=== PATIENT | female | born 2000 | race Caucasian/White ===

== ENCOUNTER 2021-01-10 22:26 | Emergency (ER) | payer OTHER ==
[~2021-01-10] VITALS: Ht 167.6 cm; Wt 56.7 kg
--- NOTE | 2021-01-10 22:40 | NUR ---
PRESENTED TO THE ER FOR C/O CHEST DICOMFORT AND PALPITATIONS S/P RECEIVING THE SECOND DOSE OF PFIZER COVID VACCINE TWO DAYS AGO. +SOB. PT REPORTED SHE WAS CHECKED OUT IN AN URGENT CARE THE OTHER DAY AND WAS DISCHARGED HOME. AMBULATORY TO BED 9 ER , WAS PLACED ON A MONITOR. NOTED W. MILD TACHYCARDIA. AWARE. WILL CONT TO MONITOR
[2021-01-10 22:50] LABS: BASOPHILS % (AUTO) 0.9 % (0.0-2.0); EOSINOPHILS % (AUTO) 2.2 % (0.0-6.0); HEMATOCRIT 42 % (33-45); LYMPHOCYTES # (AUTO) 1.4 K/uL (0.8-4.8); MEAN CORPUSCULAR HGB CONC 34 g/dl (31.0-36.0); MEAN CORPUSCULAR VOLUME 88 fL (82-100); MONOCYTES # (AUTO) 0.4 K/uL (0.1-1.30); MONOCYTES % (AUTO) 8.1 % (2.0-12.0); NEUTROPHILS % (AUTO) 60.8 % (43.0-81.0); PLATELET COUNT (AUTO) 220 K/uL (150-450); RED BLOOD CELL COUNT(AUTO) 4.78 MIL/uL (4.0-5.2)
--- NOTE | 2021-01-10 22:56 | NUR ---
PATIENT AMBULATED TO THE RESTROOM WITH A STEADY GAIT.
[2021-01-10] MEDS ORDERED: IV NS 0.9% 1,000 ML BAG IV ONE (23:00)
[2021-01-10 23:09] LABS: CALCIUM, SERUM 8.8 mg/dL (8.5-10.1); CARBON DIOXIDE 23 mmol/L (21-32); CHLORIDE 100 mmol/L (98-107); CREATININE 0.8 mg/dL (0.6-1.3); GLUCOSE 99 mg/dL (74-106); POTASSIUM 3.5 mmol/L (3.5-5.1); SODIUM SERUM 137 mmol/L (136-145); UREA NITROGEN, BLOOD 11 mg/dL (7-18)
[2021-01-10] MEDS ORDERED: IOHEXOL-350 100 ML VIAL IV ONE (23:22)
[2021-01-10] MEDS ORDERED: CT SWABBABLE VALVE TRANS SET 1 EA INFUS.SET MC ONE (23:23)
[2021-01-10] MEDS ORDERED: IV NS 0.9% 250 ML IV ONE (23:23)
--- NOTE | 2021-01-10 23:38 | NUR ---
PATIENT TAKEN TO CT VIA [facility]
[2021-01-11] MEDS ORDERED: LORAZEPAM INJ 2 MG/ML VIAL ONE (00:15)
[2021-01-11] MEDS ORDERED: LORAZEPAM INJ 2 MG/ML VIAL IV ONE (00:30)
[2021-01-11 00:55] VITALS: BP 134/76
--- NOTE | 2021-01-11 00:55 | NUR ---
Patient discharged to home in stable condition. Written and verbal after care instructions given. Patient verbalizes understanding of instruction.
--- NOTE | 2021-01-11 00:55 | NUR ---
IV removed. Catheter intact and site benign. Pressure and 4x4 applied to site. No bleeding noted.
== END 2021-01-11 00:56 | disposition home or self-care (01) ==
LOC: ER 22:26
DX: R07.89 Other chest pain (principal); R00.0 Tachycardia, unspecified
CPT/HCPCS: 36415; 71045; 71275; 80048; 84484; 84703; 85025; 85378; 93005; 96361; 96374; 99285; J2060; J7030; J7050; Q9967

== ENCOUNTER 2021-10-09 22:01 | Emergency (ER) | payer BC, OTHER ==
[~2021-10-09] VITALS: Ht 167.6 cm; Wt 56.7 kg
--- NOTE | 2021-10-09 23:00 | NUR ---
[facility] PT A/O X3 C/O BACK OF KNEE PAIN 08/05, AFTER GOING FOR A WALK , PT THEN NOTICED VERICOSE VEIN.
--- NOTE | 2021-10-09 23:13 | NUR ---
PT DISCHARGED IN STABLE CONDITION
[2021-10-09 23:14] VITALS: BP 138/83
== END 2021-10-09 23:14 | disposition home or self-care (01) ==
LOC: ER 22:07
DX: Z13.9 Encounter for screening, unspecified (principal); F41.9 Anxiety disorder, unspecified